=== PATIENT | male | born 1985 | race Caucasian/White ===

== ENCOUNTER 2021-12-31 10:04 | Emergency (ER) | payer OTHER ==
[~2021-12-31] VITALS: Ht 193 cm; Wt 93.0 kg
[2021-12-31] MEDS ORDERED: HYDROCODONE/APAP 5/325MG TABLET PO ONE (10:30)
[2021-12-31] MEDS ORDERED: IV NS 0.9% 1,000 ML IV ONE (10:30)
[2021-12-31] MEDS ORDERED: HYDROCODONE/APAP 5/325MG TABLET ONE (10:41)
[2021-12-31 11:04] LABS: BASOPHILS % (AUTO) 0.5 % (0.0-2.0); EOSINOPHILS % (AUTO) 0.4 % (0.0-6.0); HEMATOCRIT 40 % (39-51); HEMOGLOBIN 13.8 g/dL (13.5-17.5); LYMPHOCYTES # (AUTO) 1.7 K/uL (0.8-4.8); LYMPHOCYTES % (AUTO) 18.6 % (20.0-44.0); MEAN CORPUSCULAR HGB CONC 35 g/dl (31.0-36.0); MEAN CORPUSCULAR VOLUME 84 fL (80-96); MONOCYTES # (AUTO) 0.4 K/uL (0.1-1.30); MONOCYTES % (AUTO) 4.8 % (2.0-12.0); NEUTROPHILS # (AUTO) 6.8 K/uL (1.8-8.9); NEUTROPHILS % (AUTO) 75.7 % (43.0-81.0); PLATELET COUNT (AUTO) 310 K/uL (150-450); RED BLOOD CELL COUNT(AUTO) 4.74 MIL/uL (4.5-6.0)
--- NOTE | 2021-12-31 11:16 | NUR ---
UNABLE TO START AN IV, AWARE. HOLD NS FOR NOW
[2021-12-31 11:28] LABS: CALCIUM, SERUM 8.7 mg/dL (8.5-10.1); CREATININE 0.9 mg/dL (0.6-1.3); POTASSIUM 3.9 mmol/L (3.5-5.1)
--- NOTE | 2021-12-31 11:30 | NUR ---
COVID SWAB DONE AND SENT TO LAB
[2021-12-31] MEDS ORDERED: CEPH500T PO (11:41)
--- NOTE | 2021-12-31 12:22 | NUR ---
CALLED LAB TO FOLLOW UP COVID RESULT.
--- NOTE | 2021-12-31 12:58 | NUR ---
CALLED LAB MULTIPLE TIMES TO FOLLOW UP COVID RESULTS
--- NOTE | 2021-12-31 13:01 | NUR ---
Patient discharged to [facility] in stable condition. Written and verbal after care instructions given. Patient verbalizes understanding of instruction.
[2021-12-31 13:40] VITALS: BP 121/73
== END 2021-12-31 13:40 ==
LOC: ER 10:10
DX: S81.802A Unspecified open wound, left lower leg, initial encounter (principal); R00.0 Tachycardia, unspecified; Z20.822 Contact with and (suspected) exposure to COVID-19
CPT/HCPCS: 36415; 73590; 80048; 85025; 87426; 99284; C9803; J7030